=== PATIENT | female | born 1940 | race Caucasian/White ===

== ENCOUNTER 2022-01-09 05:11 | Inpatient (IN) | payer OTHER ==
[2022-01-09] VITALS (8 sets, daily range): BP systolic 100–141; BP diastolic 48–66
[~2022-01-09] VITALS: Ht 165.1 cm; Wt 72.5 kg
[2022-01-09 06:05] LABS: BASO # 0.1 10^3/uL (0.0-0.2); BASO % 0.5 % (0.0-1.0); EOS # 0.1 10^3/uL (0.0-0.5); HEMATOCRIT 40.5 % (36.0-47.0); HEMOGLOBIN 12.7 g/dl (12.0-15.5); LYMPH % 14.7 % (24.0-44.0); MEAN CORPUSCULAR HEMOGLOBIN 28.9 pg (27.0-33.0); MEAN CORPUSCULAR HGB CONC 31.4 g/dl (32.0-36.5); MEAN CORPUSCULAR VOLUME 92.3 fl (80.0-96.0); MONO # 0.6 10^3/uL (0.0-0.8); MONO % 4.1 % (2.0-8.0); NEUTROPHILS # 10.9 10^3/uL (1.5-8.5); PLATELET COUNT, AUTOMATED 262 10^3/uL (150-450); RED BLOOD COUNT 4.39 10^6/uL (4.00-5.40); WHITE BLOOD COUNT 13.8 10^3/uL (4.0-10.0)
[2022-01-09] MEDS ORDERED: ONDANSETRON 4MG 2ML VIAL IV ONE (06:20)
[2022-01-09] MEDS ORDERED: MORPHINE 4 MG/ML 1ML VIAL/SYRINGE IV ONE (06:20)
[2022-01-09 07:03] LABS: CALCIUM LEVEL 9.2 MG/DL (8.8-10.2); CREATININE FOR GFR 0.97 MG/DL (0.55-1.30); GLOMERULAR FILTRATION RATE 58.8 (>32); MAGNESIUM LEVEL 2.1 MG/DL (1.8-2.4); POTASSIUM SERUM 4.1 MEQ/L (3.5-5.1)
[2022-01-09] MEDS ORDERED: GLUCAGON INJ 1MG VIAL SC PRN (07:25)
[2022-01-09] MEDS ORDERED: GLUCOSE 4GM CHEW TABLET PO PRN (07:25)
[2022-01-09] MEDS ORDERED: DEXTROSE 50% 50 ML SYRINGE IV PRN (07:25)
[2022-01-09 07:30] LABS: RSV AMPLIFICATION NEGATIVE (NEGATIVE)
[2022-01-09] MEDS ORDERED: LORA1TAB4 PO (08:21)
[2022-01-09] MEDS ORDERED: ASPI81TA26 PO (08:21)
[2022-01-09] MEDS ORDERED: [UNRECOGNIZED DRUG - CODE] PO (08:21)
[2022-01-09] MEDS ORDERED: JARD1TAB PO (08:21)
[2022-01-09] MEDS ORDERED: VITA100093 PO (08:21)
[2022-01-09] MEDS ORDERED: GLUCTAB31 PO (08:21)
[2022-01-09] MEDS ORDERED: GLIP5TAB8 PO (08:21)
[2022-01-09] MEDS ORDERED: FISH1000 PO (08:21)
[2022-01-09] MEDS ORDERED: CALC600T60 PO (08:21)
[2022-01-09] MEDS ORDERED: PERI2TAB PO (08:21)
[2022-01-09] MEDS ORDERED: VITA-172 PO (08:21)
[2022-01-09] MEDS ORDERED: LIPI10TA PO (08:21)
[2022-01-09] MEDS ORDERED: METF500T13 PO (08:21)
[2022-01-09] MEDS ORDERED: CRAN400C PO (08:21)
[2022-01-09] MEDS ORDERED: HOME MED LIST COMPLETE! XX SCH (08:25)
[2022-01-09] MEDS ORDERED: KCL 10MEQ IN D5/0.45NS 1000ML 1,000 ML IV SCH (09:00)
[2022-01-09] MEDS: MORPHINE 2 MG/ML 1ML VIAL IV PRN ×3 (11:10→13:54)
[2022-01-09] MEDS: D5W/0.45% SODIUM CHLORIDE 1,000 ML IV SCH ×2 (11:10→19:02)
[2022-01-09] MEDS ORDERED: propofoL 200 MG/20 ML VIAL As Ordered ONE (12:51)
[2022-01-09] MEDS ORDERED: LIDOCAINE 2% 100MG/5ML SDV (FOR ANES.) As Ordered ONE (12:51)
[2022-01-09] MEDS ORDERED: ONDANSETRON 4MG 2ML VIAL As Ordered ONE (12:51)
[2022-01-09] MEDS ORDERED: MIDAZOLAM INJ 2MG/2ML VIAL (J2250 PER 1MG) As Ordered ONE (12:51)
[2022-01-09] MEDS ORDERED: KETAMINE HCL 200 MG/20 ML VIAL As Ordered ONE (12:51)
[2022-01-09] MEDS ORDERED: fentaNYL 100 MCG/2 ML INJECTION As Ordered ONE (12:51)
[2022-01-09] MEDS: INSULIN LISPRO (NovoLOG) PER UNIT SC SCH ×3 (13:53→23:08)
[2022-01-09] MEDS ORDERED: TRANEXAMIC ACID 100 MG/ML 10ML VIAL As Ordered ONE (15:04)
[2022-01-09] MEDS ORDERED: ceFAZolin 2 GM/D5W 50 ML IV BAG (J0690 PER 500MG) As Ordered ONE (15:04)
[2022-01-09] MEDS ORDERED: PHENYLephrine 500MCG 5ML (100MCG/ML) SYRINGE As Ordered ONE ×2 (16:27→16:28)
[2022-01-09] MEDS ORDERED: ACETAMINOPHEN 1000MG 100ML IV BTL (OFIRMEV) (J0131 PER 10MG) As Ordered ONE (16:27)
[2022-01-09] MEDS ORDERED: ePHEDrine SULFATE 25 MG/5 ML(5MG/ML) SYRINGE As Ordered ONE (16:28)
[2022-01-09] MEDS ORDERED: LR 1,000 ML IV SCH (17:25)
[2022-01-09] MEDS ORDERED: oxyCODONE 5MG TAB PO PRN (17:25)
[2022-01-09] MEDS ORDERED: MORPHINE 2 MG/ML 1ML VIAL IV PRN (17:25)
[2022-01-09] MEDS ORDERED: ONDANSETRON 4MG 2ML VIAL IV PRN (17:25)
[2022-01-09] MEDS ORDERED: fentaNYL 100 MCG/2 ML INJECTION IV PRN (17:25)
[2022-01-10] MEDS ORDERED: ceFAZolin SOD 2 GM in IV 1 EA IV SCH ×2
[2022-01-10 00:06] VITALS: BP 106/55
[2022-01-10] MEDS: ceFAZolin SOD 2 GM in IV 1 EA IV SCH ×3 (00:09→18:15)
[2022-01-10] MEDS: MORPHINE 2 MG/ML 1ML VIAL IV PRN ×2 (01:17→06:43)
[2022-01-10 01:25] LABS: APPEARANCE, URINE MANUAL CLEAR (CLEAR); COLOR, URINE MANUAL YELLOW (YELLOW)
[2022-01-10 01:26] LABS: BILIRUBIN, URINE MANUAL NEGATIVE (NEGATIVE); BLOOD URINE MANUAL TRACE (NEGATIVE); GLUCOSE, URINE (UA) MANUAL 4+(1000 MG/DL) mg/dL (NEGATIVE); KETONE, URINE MANUAL NEGATIVE (NEGATIVE); NITRITE, URINE MANUAL NEGATIVE (NEGATIVE); PROTEIN, URINE MANUAL NEGATIVE (NEGATIVE); UROBILINOGEN, URINE MANUAL NORMAL (NORMAL)
[2022-01-10 01:27] LABS: LEUKOCYTE ESTERASE, URINE MAN NEGATIVE (NEGATIVE)
[2022-01-10 01:36] LABS: SQUAMOUS EPITHELIAL CELL URINE SMALL AMOUNT /hpf (SMALL AMT); WBC, URINE 0-1 /hpf (0-3)
[2022-01-10 01:37] LABS: AMORPHOUS SEDIMENT, URINE SMALL AMOUNT (NEGATIVE); BACTERIA, URINE SMALL AMOUNT; HYALINE CAST, URINE NONE SEEN /lpf (0-1)
[2022-01-10 04:00] VITALS: BP 103/55
[2022-01-10] MEDS: D5W/0.45% SODIUM CHLORIDE 1,000 ML IV SCH (05:27)
[2022-01-10 08:00] VITALS: BP 107/54
[2022-01-10] MEDS ORDERED: metFORMIN (GLUCOPHAGE) 500MG TAB PO SCH (08:00)
[2022-01-10] MEDS ORDERED: PERCOCET 5MG/325MG TAB PO ONE (08:40)
[2022-01-10] MEDS ORDERED: KETOROLAC 30 MG/ML 1ML VIAL IV ONE (08:40)
[2022-01-10] MEDS ORDERED: PERCOCET 5MG/325MG TAB PO PRN ×2 (08:40)
[2022-01-10] MEDS: ATORVASTATIN 10 MG TAB PO SCH (08:55)
[2022-01-10] MEDS: ASPIRIN 81MG ENTERIC TABLET PO SCH (08:55)
[2022-01-10] MEDS: VITAMIN D 1,000 INTERNATIONAL UNITS TABLET PO SCH (08:55)
[2022-01-10] MEDS: CYANOCOBALAMIN 500 MCG TAB PO SCH (08:55)
[2022-01-10] MEDS: INSULIN LISPRO (NovoLOG) PER UNIT SC SCH ×4 (08:56→20:53)
[2022-01-10] MEDS ORDERED: glipiZIDE (GLUCOTROL) 5 MG TAB PO SCH (09:00)
[2022-01-10 10:12] LABS: HEMATOCRIT 30.1 % (36.0-47.0); HEMOGLOBIN 9.5 g/dl (12.0-15.5); MEAN CORPUSCULAR HEMOGLOBIN 29.4 pg (27.0-33.0); MEAN CORPUSCULAR HGB CONC 31.6 g/dl (32.0-36.5); MEAN CORPUSCULAR VOLUME 93.2 fl (80.0-96.0); PLATELET COUNT, AUTOMATED 207 10^3/uL (150-450); RED BLOOD COUNT 3.23 10^6/uL (4.00-5.40); WHITE BLOOD COUNT 19.4 10^3/uL (4.0-10.0)
[2022-01-10 10:18] LABS: CALCIUM LEVEL 8.3 MG/DL (8.8-10.2); CREATININE FOR GFR 1.03 MG/DL (0.55-1.30); GLOMERULAR FILTRATION RATE 54.9 (>32); POTASSIUM SERUM 4.4 MEQ/L (3.5-5.1)
[2022-01-10 12:00] VITALS: BP 110/47
[2022-01-10 14:00] VITALS: BP 115/51
[2022-01-10 20:00] VITALS: BP 115/48
[2022-01-11 06:00] VITALS: BP 125/60
[2022-01-11 06:55] LABS: HEMOGLOBIN 8.1 g/dl (12.0-15.5); MEAN CORPUSCULAR HEMOGLOBIN 29.1 pg (27.0-33.0); MEAN CORPUSCULAR HGB CONC 32.4 g/dl (32.0-36.5); MEAN CORPUSCULAR VOLUME 89.9 fl (80.0-96.0); PLATELET COUNT, AUTOMATED 187 10^3/uL (150-450); RED BLOOD COUNT 2.78 10^6/uL (4.00-5.40); WHITE BLOOD COUNT 17.9 10^3/uL (4.0-10.0)
[2022-01-11 07:24] LABS: ALBUMIN 2.5 GM/DL (3.2-5.2); BILIRUBIN,TOTAL 0.4 MG/DL (0.2-1.0); CALCIUM LEVEL 8.5 MG/DL (8.8-10.2); CREATININE FOR GFR 1.07 MG/DL (0.55-1.30); GLOMERULAR FILTRATION RATE 52.5 (>32); MAGNESIUM LEVEL 1.9 MG/DL (1.8-2.4); POTASSIUM SERUM 4.2 MEQ/L (3.5-5.1); TOTAL PROTEIN 5.8 GM/DL (6.4-8.2)
[2022-01-11] MEDS: CYANOCOBALAMIN 500 MCG TAB PO SCH (08:29)
[2022-01-11] MEDS: ASPIRIN 81MG ENTERIC TABLET PO SCH (08:29)
[2022-01-11] MEDS: VITAMIN D 1,000 INTERNATIONAL UNITS TABLET PO SCH (08:29)
[2022-01-11] MEDS: ATORVASTATIN 10 MG TAB PO SCH (08:29)
[2022-01-11] MEDS: INSULIN LISPRO (NovoLOG) PER UNIT SC SCH ×4 (08:29→21:00)
[2022-01-11] MEDS: NORCO, ANEXSIA 5/325MG TABLET (HYDROcodone/ACETAMINOPHEN) PO PRN (08:47)
[2022-01-11] MEDS: LORazepam 0.5 MG TAB PO PRN (11:34)
[2022-01-11 12:48] LABS: HEMATOCRIT 26.2 % (36.0-47.0); HEMOGLOBIN 8.5 g/dl (12.0-15.5)
[2022-01-11 14:00] VITALS: BP 124/60
[2022-01-12 06:00] VITALS: BP 141/61
[2022-01-12 06:44] LABS: HEMATOCRIT 25.6 % (36.0-47.0); MEAN CORPUSCULAR HEMOGLOBIN 28.3 pg (27.0-33.0); MEAN CORPUSCULAR HGB CONC 31.3 g/dl (32.0-36.5); MEAN CORPUSCULAR VOLUME 90.5 fl (80.0-96.0); PLATELET COUNT, AUTOMATED 191 10^3/uL (150-450); RED BLOOD COUNT 2.83 10^6/uL (4.00-5.40); WHITE BLOOD COUNT 13.9 10^3/uL (4.0-10.0)
[2022-01-12 07:15] LABS: ALBUMIN 2.4 GM/DL (3.2-5.2); ALT/SGPT 10 U/L (12-78); BILIRUBIN,TOTAL 0.3 MG/DL (0.2-1.0); BLOOD UREA NITROGEN 22 MG/DL (7-18); CALCIUM LEVEL 8.4 MG/DL (8.8-10.2); CARBON DIOXIDE LEVEL 21 MEQ/L (21-32); CHLORIDE LEVEL 106 MEQ/L (98-107); CREATININE FOR GFR 0.77 MG/DL (0.55-1.30); GLOMERULAR FILTRATION RATE > 60.0 (>32); GLUCOSE, FASTING 125 MG/DL (70-100); POTASSIUM SERUM 4.1 MEQ/L (3.5-5.1); SODIUM LEVEL 136 MEQ/L (136-145); TOTAL PROTEIN 5.3 GM/DL (6.4-8.2)
[2022-01-12] MEDS: INSULIN LISPRO (NovoLOG) PER UNIT SC SCH ×4 (07:30→20:00)
[2022-01-12] MEDS: ASPIRIN 81MG ENTERIC TABLET PO SCH (08:11)
[2022-01-12] MEDS: VITAMIN D 1,000 INTERNATIONAL UNITS TABLET PO SCH (08:11)
[2022-01-12] MEDS: CYANOCOBALAMIN 500 MCG TAB PO SCH (08:11)
[2022-01-12] MEDS: ATORVASTATIN 10 MG TAB PO SCH (08:11)
[2022-01-12] MEDS: NORCO, ANEXSIA 5/325MG TABLET (HYDROcodone/ACETAMINOPHEN) PO PRN ×2 (08:15→19:59)
[2022-01-12] MEDS: LORazepam 0.5 MG TAB PO PRN (14:39)
[2022-01-12 15:00] VITALS: BP 140/61
[2022-01-12 20:02] VITALS: BP 139/60
[2022-01-13] MEDS: NORCO, ANEXSIA 5/325MG TABLET (HYDROcodone/ACETAMINOPHEN) PO PRN ×3 (04:03→20:45)
[2022-01-13 05:36] VITALS: BP 129/59
[2022-01-13 06:29] LABS: HEMATOCRIT 25.7 % (36.0-47.0); HEMOGLOBIN 8.3 g/dl (12.0-15.5); MEAN CORPUSCULAR HEMOGLOBIN 28.8 pg (27.0-33.0); MEAN CORPUSCULAR HGB CONC 32.3 g/dl (32.0-36.5); MEAN CORPUSCULAR VOLUME 89.2 fl (80.0-96.0); PLATELET COUNT, AUTOMATED 240 10^3/uL (150-450); RED BLOOD COUNT 2.88 10^6/uL (4.00-5.40); WHITE BLOOD COUNT 13.3 10^3/uL (4.0-10.0)
[2022-01-13] MEDS: LORazepam 0.5 MG TAB PO PRN (06:32)
[2022-01-13 07:19] LABS: ALBUMIN 2.4 GM/DL (3.2-5.2); ALT/SGPT 12 U/L (12-78); BILIRUBIN,TOTAL 0.5 MG/DL (0.2-1.0); BLOOD UREA NITROGEN 25 MG/DL (7-18); CALCIUM LEVEL 8.4 MG/DL (8.8-10.2); CARBON DIOXIDE LEVEL 22 MEQ/L (21-32); CHLORIDE LEVEL 105 MEQ/L (98-107); GLOMERULAR FILTRATION RATE > 60.0 (>32); GLUCOSE, FASTING 158 MG/DL (70-100); MAGNESIUM LEVEL 2.1 MG/DL (1.8-2.4); POTASSIUM SERUM 4.2 MEQ/L (3.5-5.1); SODIUM LEVEL 135 MEQ/L (136-145); TOTAL PROTEIN 5.7 GM/DL (6.4-8.2)
[2022-01-13] MEDS: INSULIN LISPRO (NovoLOG) PER UNIT SC SCH ×4 (07:30→20:43)
[2022-01-13] MEDS: CYANOCOBALAMIN 500 MCG TAB PO SCH (09:40)
[2022-01-13] MEDS: ASPIRIN 81MG ENTERIC TABLET PO SCH (09:40)
[2022-01-13] MEDS: VITAMIN D 1,000 INTERNATIONAL UNITS TABLET PO SCH (09:40)
[2022-01-13] MEDS: ATORVASTATIN 10 MG TAB PO SCH (09:40)
[2022-01-13] MEDS: SENOKOT S TAB PO SCH ×2 (13:09→20:44)
[2022-01-13 14:00] VITALS: BP 132/57
[2022-01-13 20:00] VITALS: BP 133/55
[2022-01-14] MEDS: NORCO, ANEXSIA 5/325MG TABLET (HYDROcodone/ACETAMINOPHEN) PO PRN ×3 (04:53→19:04)
[2022-01-14 06:00] VITALS: BP 124/67
[2022-01-14 07:00] LABS: HEMATOCRIT 24.9 % (36.0-47.0); HEMOGLOBIN 8.2 g/dl (12.0-15.5); MEAN CORPUSCULAR HEMOGLOBIN 29.1 pg (27.0-33.0); MEAN CORPUSCULAR HGB CONC 32.9 g/dl (32.0-36.5); MEAN CORPUSCULAR VOLUME 88.3 fl (80.0-96.0); PLATELET COUNT, AUTOMATED 293 10^3/uL (150-450); RED BLOOD COUNT 2.82 10^6/uL (4.00-5.40); WHITE BLOOD COUNT 11.8 10^3/uL (4.0-10.0)
[2022-01-14] MEDS: LORazepam 0.5 MG TAB PO PRN (07:00)
[2022-01-14 07:34] LABS: ALBUMIN 2.3 GM/DL (3.2-5.2); ALT/SGPT 10 U/L (12-78); BILIRUBIN,TOTAL 0.6 MG/DL (0.2-1.0); BLOOD UREA NITROGEN 21 MG/DL (7-18); CALCIUM LEVEL 8.5 MG/DL (8.8-10.2); CARBON DIOXIDE LEVEL 24 MEQ/L (21-32); CHLORIDE LEVEL 105 MEQ/L (98-107); CREATININE FOR GFR 0.76 MG/DL (0.55-1.30); GLOMERULAR FILTRATION RATE > 60.0 (>32); GLUCOSE, FASTING 168 MG/DL (70-100); MAGNESIUM LEVEL 2.2 MG/DL (1.8-2.4); POTASSIUM SERUM 4.5 MEQ/L (3.5-5.1); SODIUM LEVEL 136 MEQ/L (136-145); TOTAL PROTEIN 5.5 GM/DL (6.4-8.2)
[2022-01-14] MEDS: INSULIN LISPRO (NovoLOG) PER UNIT SC SCH ×4 (08:25→21:00)
[2022-01-14] MEDS: ACETAMINOPHEN TAB 650MG DOSE (2X325MG) PO PRN (08:26)
[2022-01-14] MEDS: CYANOCOBALAMIN 500 MCG TAB PO SCH (08:26)
[2022-01-14] MEDS: ASPIRIN 81MG ENTERIC TABLET PO SCH (08:26)
[2022-01-14] MEDS: SENOKOT S TAB PO SCH ×2 (08:26→21:24)
[2022-01-14] MEDS: VITAMIN D 1,000 INTERNATIONAL UNITS TABLET PO SCH (08:26)
[2022-01-14] MEDS: ATORVASTATIN 10 MG TAB PO SCH (08:26)
[2022-01-14] MEDS: ENOXAPARIN 40MG/0.4ML SYRINGE (J1650 PER 10MG) SC SCH (12:19)
[2022-01-15] MEDS: NORCO, ANEXSIA 5/325MG TABLET (HYDROcodone/ACETAMINOPHEN) PO PRN ×3 (02:59→15:51)
[2022-01-15] MEDS ORDERED: NORCO, ANEXSIA 5/325MG TABLET (HYDROcodone/ACETAMINOPHEN) PO ONE (04:00)
[2022-01-15 06:00] VITALS: BP 130/54
[2022-01-15 06:56] LABS: BASO # 0.1 10^3/uL (0.0-0.2); BASO % 0.6 % (0.0-1.0); EOS # 0.3 10^3/uL (0.0-0.5); EOS % 2.4 % (0.0-3.0); HEMATOCRIT 26.2 % (36.0-47.0); HEMOGLOBIN 8.4 g/dl (12.0-15.5); LYMPH # 1.8 10^3/uL (1.5-5.0); LYMPH % 16.9 % (24.0-44.0); MEAN CORPUSCULAR HEMOGLOBIN 28.9 pg (27.0-33.0); MEAN CORPUSCULAR HGB CONC 32.1 g/dl (32.0-36.5); MONO % 9.5 % (2.0-8.0); NEUTROPHILS # 7.5 10^3/uL (1.5-8.5); NEUTROPHILS % 68.8 % (36.0-66.0); PLATELET COUNT, AUTOMATED 335 10^3/uL (150-450); RED BLOOD COUNT 2.91 10^6/uL (4.00-5.40); WHITE BLOOD COUNT 10.9 10^3/uL (4.0-10.0)
[2022-01-15 07:27] LABS: ALBUMIN 2.3 GM/DL (3.2-5.2); ALT/SGPT 13 U/L (12-78); BILIRUBIN,TOTAL 0.5 MG/DL (0.2-1.0); BLOOD UREA NITROGEN 22 MG/DL (7-18); CALCIUM LEVEL 8.9 MG/DL (8.8-10.2); CARBON DIOXIDE LEVEL 25 MEQ/L (21-32); CHLORIDE LEVEL 100 MEQ/L (98-107); CREATININE FOR GFR 0.83 MG/DL (0.55-1.30); GLOMERULAR FILTRATION RATE > 60.0 (>32); GLUCOSE, FASTING 160 MG/DL (70-100); MAGNESIUM LEVEL 2.2 MG/DL (1.8-2.4); POTASSIUM SERUM 5.1 MEQ/L (3.5-5.1); SODIUM LEVEL 133 MEQ/L (136-145); TOTAL PROTEIN 5.5 GM/DL (6.4-8.2)
[2022-01-15] MEDS: CYANOCOBALAMIN 500 MCG TAB PO SCH (09:21)
[2022-01-15] MEDS: SENOKOT S TAB PO SCH ×2 (09:21→20:11)
[2022-01-15] MEDS: VITAMIN D 1,000 INTERNATIONAL UNITS TABLET PO SCH (09:21)
[2022-01-15] MEDS: ASPIRIN 81MG ENTERIC TABLET PO SCH (09:21)
[2022-01-15] MEDS: ATORVASTATIN 10 MG TAB PO SCH (09:21)
[2022-01-15] MEDS: ENOXAPARIN 40MG/0.4ML SYRINGE (J1650 PER 10MG) SC SCH (09:22)
[2022-01-15] MEDS: INSULIN LISPRO (NovoLOG) PER UNIT SC SCH ×4 (09:27→20:11)
[2022-01-15 10:00] VITALS: BP 122/66
[2022-01-15] MEDS: LORazepam 0.5 MG TAB PO PRN (10:35)
[2022-01-15 12:40] VITALS: BP 132/76
[2022-01-15] MEDS ORDERED: ADENOSINE 6MG/2ML INJECTION (J0153) IV STA (13:05)
[2022-01-15] MEDS ORDERED: ADENOSINE 6MG/2ML INJECTION (J0153) As Ordered ONE (13:06)
[2022-01-15] MEDS ORDERED: ISOVUE-370 76% 100ML VIAL As Ordered ONE (13:57)
[2022-01-15 14:02] LABS: BASO # 0.1 10^3/uL (0.0-0.2); BASO % 0.5 % (0.0-1.0); EOS # 0.1 10^3/uL (0.0-0.5); EOS % 1.2 % (0.0-3.0); HEMATOCRIT 27.4 % (36.0-47.0); HEMOGLOBIN 8.6 g/dl (12.0-15.5); LYMPH # 1.4 10^3/uL (1.5-5.0); LYMPH % 12.2 % (24.0-44.0); MEAN CORPUSCULAR HEMOGLOBIN 28.1 pg (27.0-33.0); MEAN CORPUSCULAR HGB CONC 31.4 g/dl (32.0-36.5); MEAN CORPUSCULAR VOLUME 89.5 fl (80.0-96.0); MONO % 8.2 % (2.0-8.0); NEUTROPHILS % 76.2 % (36.0-66.0); PLATELET COUNT, AUTOMATED 368 10^3/uL (150-450); RED BLOOD COUNT 3.06 10^6/uL (4.00-5.40); WHITE BLOOD COUNT 11.8 10^3/uL (4.0-10.0)
[2022-01-15 14:28] LABS: MAGNESIUM LEVEL 2.1 MG/DL (1.8-2.4)
[2022-01-15] MEDS: METOPROLOL TART 12.5 MG PER 1/2 TAB PO SCH ×2 (14:31→20:11)
[2022-01-15 14:40] LABS: ALBUMIN 2.4 GM/DL (3.2-5.2); ALT/SGPT 15 U/L (12-78); BILIRUBIN,TOTAL 0.5 MG/DL (0.2-1.0); BLOOD UREA NITROGEN 23 MG/DL (7-18); CALCIUM LEVEL 8.7 MG/DL (8.8-10.2); CARBON DIOXIDE LEVEL 29 MEQ/L (21-32); CHLORIDE LEVEL 100 MEQ/L (98-107); CREATININE FOR GFR 0.92 MG/DL (0.55-1.30); FREE THYROXINE INDEX 3.8 % (1.3-4.8); GLOMERULAR FILTRATION RATE > 60.0 (>32); GLUCOSE, FASTING 237 MG/DL (70-100); POTASSIUM SERUM 5.3 MEQ/L (3.5-5.1); SODIUM LEVEL 133 MEQ/L (136-145); T UPTAKE 37 % (30-39); THYROXINE (T4) 10.3 UG/DL (4.5-12.0); TOTAL PROTEIN 5.8 GM/DL (6.4-8.2)
[2022-01-15] MEDS ORDERED: DEXTROSE 50% 50 ML SYRINGE IV STA (14:45)
[2022-01-15] MEDS ORDERED: HumuLIN R (REGULAR) INSULIN (NovoLIN R) **100U/ML** PER UNIT IV STA (14:45)
[2022-01-15] MEDS: NS 1,000 ML IV SCH (15:38)
[2022-01-15 16:00] VITALS: BP 142/72
[2022-01-15] MEDS ORDERED: SOD POLYSTYRENE SULFONATE SUSP 15GM 60ML UD PO ONE (16:00)
[2022-01-15 20:04] VITALS: BP 145/64
[2022-01-15] MEDS: ACETAMINOPHEN TAB 650MG DOSE (2X325MG) PO PRN (20:11)
[2022-01-15 20:14] LABS: BLOOD UREA NITROGEN 22 MG/DL (7-18); CALCIUM LEVEL 9.3 MG/DL (8.8-10.2); CARBON DIOXIDE LEVEL 27 MEQ/L (21-32); CHLORIDE LEVEL 102 MEQ/L (98-107); GLOMERULAR FILTRATION RATE > 60.0 (>32); GLUCOSE, FASTING 131 MG/DL (70-100); POTASSIUM SERUM 4.4 MEQ/L (3.5-5.1); SODIUM LEVEL 137 MEQ/L (136-145)
[2022-01-15 23:53] VITALS: BP 136/62
[2022-01-16 03:51] VITALS: BP 123/58
[2022-01-16] MEDS: NS 1,000 ML IV SCH ×2 (03:52→15:43)
[2022-01-16] MEDS: NORCO, ANEXSIA 5/325MG TABLET (HYDROcodone/ACETAMINOPHEN) PO PRN ×3 (03:53→20:47)
[2022-01-16 05:08] LABS: HEMATOCRIT 23.8 % (36.0-47.0); HEMOGLOBIN 7.5 g/dl (12.0-15.5); MEAN CORPUSCULAR HEMOGLOBIN 28.4 pg (27.0-33.0); MEAN CORPUSCULAR HGB CONC 31.5 g/dl (32.0-36.5); MEAN CORPUSCULAR VOLUME 90.2 fl (80.0-96.0); PLATELET COUNT, AUTOMATED 364 10^3/uL (150-450); RED BLOOD COUNT 2.64 10^6/uL (4.00-5.40); WHITE BLOOD COUNT 12.7 10^3/uL (4.0-10.0)
[2022-01-16 05:43] LABS: ALBUMIN 2.2 GM/DL (3.2-5.2); ALT/SGPT 13 U/L (12-78); BILIRUBIN,TOTAL 0.5 MG/DL (0.2-1.0); BLOOD UREA NITROGEN 21 MG/DL (7-18); CALCIUM LEVEL 8.6 MG/DL (8.8-10.2); CARBON DIOXIDE LEVEL 29 MEQ/L (21-32); CHLORIDE LEVEL 101 MEQ/L (98-107); CREATININE FOR GFR 0.76 MG/DL (0.55-1.30); GLOMERULAR FILTRATION RATE > 60.0 (>32); GLUCOSE, FASTING 151 MG/DL (70-100); MAGNESIUM LEVEL 2.2 MG/DL (1.8-2.4); SODIUM LEVEL 136 MEQ/L (136-145); TOTAL PROTEIN 5.1 GM/DL (6.4-8.2)
[2022-01-16] MEDS: ACETAMINOPHEN TAB 650MG DOSE (2X325MG) PO PRN (06:30)
[2022-01-16] MEDS: LORazepam 0.5 MG TAB PO PRN (07:42)
[2022-01-16 08:00] VITALS: BP 131/59
[2022-01-16] MEDS: INSULIN LISPRO (NovoLOG) PER UNIT SC SCH ×4 (08:28→20:09)
[2022-01-16] MEDS: CYANOCOBALAMIN 500 MCG TAB PO SCH (08:28)
[2022-01-16] MEDS: SENOKOT S TAB PO SCH ×2 (08:29→20:44)
[2022-01-16] MEDS: ATORVASTATIN 10 MG TAB PO SCH (08:29)
[2022-01-16] MEDS: ASPIRIN 81MG ENTERIC TABLET PO SCH (08:29)
[2022-01-16] MEDS: VITAMIN D 1,000 INTERNATIONAL UNITS TABLET PO SCH (08:29)
[2022-01-16] MEDS: METOPROLOL TART 12.5 MG PER 1/2 TAB PO SCH ×2 (08:30→20:46)
[2022-01-16] MEDS: ENOXAPARIN 40MG/0.4ML SYRINGE (J1650 PER 10MG) SC SCH (08:30)
[2022-01-16 12:08] VITALS: BP 119/58
[2022-01-16 12:14] LABS: HEMATOCRIT 24.3 % (36.0-47.0); HEMOGLOBIN 7.6 g/dl (12.0-15.5)
[2022-01-16 12:54] LABS: PERCENT SATURATION 19.9 % (13.2-45.0)
[2022-01-16 15:36] VITALS: BP 137/60
[2022-01-16] MEDS: FERROUS SULFATE 325MG TAB PO SCH (15:42)
[2022-01-16] MEDS ORDERED: LORazepam 0.5 MG TAB PO ONE (20:00)
[2022-01-16 20:12] LABS: HEMATOCRIT 24.8 % (36.0-47.0); HEMOGLOBIN 7.8 g/dl (12.0-15.5)
[2022-01-17] VITALS (16 sets, daily range): BP systolic 115–157; BP diastolic 56–74
[2022-01-17] MEDS: NS 1,000 ML IV SCH ×2 (04:08→20:40)
[2022-01-17] MEDS: NORCO, ANEXSIA 5/325MG TABLET (HYDROcodone/ACETAMINOPHEN) PO PRN ×3 (05:57→19:37)
[2022-01-17 06:39] LABS: BASO # 0.1 10^3/uL (0.0-0.2); BASO % 0.3 % (0.0-1.0); EOS # 0.2 10^3/uL (0.0-0.5); EOS % 1.2 % (0.0-3.0); HEMATOCRIT 25.1 % (36.0-47.0); HEMOGLOBIN 7.9 g/dl (12.0-15.5); LYMPH # 1.3 10^3/uL (1.5-5.0); LYMPH % 6.9 % (24.0-44.0); MEAN CORPUSCULAR HEMOGLOBIN 29.4 pg (27.0-33.0); MEAN CORPUSCULAR HGB CONC 31.5 g/dl (32.0-36.5); MEAN CORPUSCULAR VOLUME 93.3 fl (80.0-96.0); MONO # 0.9 10^3/uL (0.0-0.8); MONO % 5.2 % (2.0-8.0); NEUTROPHILS # 15.3 10^3/uL (1.5-8.5); NEUTROPHILS % 84.5 % (36.0-66.0); PLATELET COUNT, AUTOMATED 426 10^3/uL (150-450); RED BLOOD COUNT 2.69 10^6/uL (4.00-5.40); WHITE BLOOD COUNT 18.1 10^3/uL (4.0-10.0)
[2022-01-17 07:12] LABS: ALBUMIN 2.4 GM/DL (3.2-5.2); ALT/SGPT 13 U/L (12-78); BILIRUBIN,TOTAL 0.5 MG/DL (0.2-1.0); BLOOD UREA NITROGEN 17 MG/DL (7-18); CALCIUM LEVEL 8.5 MG/DL (8.8-10.2); CARBON DIOXIDE LEVEL 27 MEQ/L (21-32); CHLORIDE LEVEL 103 MEQ/L (98-107); CREATININE FOR GFR 0.69 MG/DL (0.55-1.30); GLOMERULAR FILTRATION RATE > 60.0 (>32); GLUCOSE, FASTING 178 MG/DL (70-100); MAGNESIUM LEVEL 2.1 MG/DL (1.8-2.4); POTASSIUM SERUM 4.2 MEQ/L (3.5-5.1); SODIUM LEVEL 135 MEQ/L (136-145); TOTAL PROTEIN 5.6 GM/DL (6.4-8.2)
[2022-01-17] MEDS: LORazepam 0.5 MG TAB PO PRN (07:42)
[2022-01-17] MEDS: ENOXAPARIN 40MG/0.4ML SYRINGE (J1650 PER 10MG) SC SCH (08:58)
[2022-01-17] MEDS: ATORVASTATIN 10 MG TAB PO SCH (08:58)
[2022-01-17] MEDS: ASPIRIN 81MG ENTERIC TABLET PO SCH (08:58)
[2022-01-17] MEDS: SENOKOT S TAB PO SCH ×2 (08:59→20:16)
[2022-01-17] MEDS: INSULIN LISPRO (NovoLOG) PER UNIT SC SCH ×4 (08:59→20:15)
[2022-01-17] MEDS: FERROUS SULFATE 325MG TAB PO SCH (09:00)
[2022-01-17] MEDS: VITAMIN D 1,000 INTERNATIONAL UNITS TABLET PO SCH (09:00)
[2022-01-17] MEDS: CYANOCOBALAMIN 500 MCG TAB PO SCH (09:00)
[2022-01-17] MEDS: METOPROLOL TART 12.5 MG PER 1/2 TAB PO SCH ×2 (09:02→20:16)
[2022-01-17 11:49] LABS: FOLATE 13.1 NG/ML (>5.4)
[2022-01-17 13:58] LABS: CK-MB VALUE MASS < 1.0 NG/ML (<3.6); CPK CREATINE PHOSPHOKINASE 47 U/L (26-192); MB/CK RELATIVE INDEX 2.13 (< OR =4)
[2022-01-17 23:14] LABS: CK-MB VALUE MASS < 1.0 NG/ML (<3.6); CPK CREATINE PHOSPHOKINASE 38 U/L (26-192); MB/CK RELATIVE INDEX 2.63 (< OR =4)
[2022-01-18] VITALS: BP 134/60
[2022-01-18] MEDS: NS 1,000 ML IV SCH ×3 (01:25→20:21)
[2022-01-18] MEDS: NORCO, ANEXSIA 5/325MG TABLET (HYDROcodone/ACETAMINOPHEN) PO PRN ×3 (03:39→17:27)
[2022-01-18 04:00] VITALS: BP 119/57
[2022-01-18 07:04] LABS: HEMATOCRIT 32.4 % (36.0-47.0); MEAN CORPUSCULAR HEMOGLOBIN 29.8 pg (27.0-33.0); MEAN CORPUSCULAR HGB CONC 32.1 g/dl (32.0-36.5); MEAN CORPUSCULAR VOLUME 92.8 fl (80.0-96.0); PLATELET COUNT, AUTOMATED 370 10^3/uL (150-450); RED BLOOD COUNT 3.49 10^6/uL (4.00-5.40)
[2022-01-18 07:06] LABS: HEMOGLOBIN 10.4 g/dl (12.0-15.5)
[2022-01-18 07:31] LABS: CK-MB VALUE MASS < 1.0 NG/ML (<3.6); CPK CREATINE PHOSPHOKINASE 36 U/L (26-192); MB/CK RELATIVE INDEX 2.78 (< OR =4)
[2022-01-18 07:32] LABS: BLOOD UREA NITROGEN 16 MG/DL (7-18); CALCIUM LEVEL 8.6 MG/DL (8.8-10.2); CARBON DIOXIDE LEVEL 27 MEQ/L (21-32); CHLORIDE LEVEL 107 MEQ/L (98-107); CREATININE FOR GFR 0.78 MG/DL (0.55-1.30); GLOMERULAR FILTRATION RATE > 60.0 (>32); GLUCOSE, FASTING 157 MG/DL (70-100); POTASSIUM SERUM 4.5 MEQ/L (3.5-5.1); SODIUM LEVEL 139 MEQ/L (136-145)
[2022-01-18 07:55] VITALS: BP 125/59
[2022-01-18] MEDS: SENOKOT S TAB PO SCH ×2 (08:52→20:39)
[2022-01-18] MEDS: ASPIRIN 81MG ENTERIC TABLET PO SCH (08:52)
[2022-01-18] MEDS: ATORVASTATIN 10 MG TAB PO SCH (08:52)
[2022-01-18] MEDS: ENOXAPARIN 40MG/0.4ML SYRINGE (J1650 PER 10MG) SC SCH (08:52)
[2022-01-18] MEDS: FERROUS SULFATE 325MG TAB PO SCH (08:52)
[2022-01-18] MEDS: CYANOCOBALAMIN 500 MCG TAB PO SCH (08:52)
[2022-01-18] MEDS: VITAMIN D 1,000 INTERNATIONAL UNITS TABLET PO SCH (08:52)
[2022-01-18] MEDS: METOPROLOL TART 12.5 MG PER 1/2 TAB PO SCH (08:52)
[2022-01-18] MEDS: INSULIN LISPRO (NovoLOG) PER UNIT SC SCH ×4 (08:56→20:31)
[2022-01-18] MEDS ORDERED: TAMSULOSIN 0.4 MG CAP PO ONE (10:15)
[2022-01-18 13:00] VITALS: BP 137/63
[2022-01-18 14:50] VITALS: BP 131/59
[2022-01-18] MEDS: LORazepam 0.5 MG TAB PO PRN (17:33)
[2022-01-18] MEDS ORDERED: atenoloL 25 MG TAB PO ONE (19:00)
[2022-01-18] MEDS ORDERED: DIGOXIN 0.125 MG TAB PO ONE (19:00)
[2022-01-18] MEDS ORDERED: NS 500 ML IV ONE (19:00)
[2022-01-18 20:15] VITALS: BP 136/63
[2022-01-19] VITALS (7 sets, daily range): BP systolic 101–157; BP diastolic 52–70
[2022-01-19 04:31] LABS: HEMATOCRIT 31.3 % (36.0-47.0); HEMOGLOBIN 9.9 g/dl (12.0-15.5); MEAN CORPUSCULAR HEMOGLOBIN 29.5 pg (27.0-33.0); MEAN CORPUSCULAR HGB CONC 31.6 g/dl (32.0-36.5); MEAN CORPUSCULAR VOLUME 93.2 fl (80.0-96.0); PLATELET COUNT, AUTOMATED 350 10^3/uL (150-450); RED BLOOD COUNT 3.36 10^6/uL (4.00-5.40); WHITE BLOOD COUNT 11.1 10^3/uL (4.0-10.0)
[2022-01-19 05:28] LABS: BLOOD UREA NITROGEN 17 MG/DL (7-18); CALCIUM LEVEL 8.2 MG/DL (8.8-10.2); CARBON DIOXIDE LEVEL 28 MEQ/L (21-32); CHLORIDE LEVEL 107 MEQ/L (98-107); CREATININE FOR GFR 0.65 MG/DL (0.55-1.30); GLOMERULAR FILTRATION RATE > 60.0 (>32); GLUCOSE, FASTING 151 MG/DL (70-100); MAGNESIUM LEVEL 1.9 MG/DL (1.8-2.4); POTASSIUM SERUM 4.9 MEQ/L (3.5-5.1); SODIUM LEVEL 138 MEQ/L (136-145)
[2022-01-19] MEDS: METOPROLOL TART 25 MG TABLET PO SCH ×2 (06:19)
[2022-01-19] MEDS: INSULIN LISPRO (NovoLOG) PER UNIT SC SCH ×4 (07:32→20:19)
[2022-01-19] MEDS: FERROUS SULFATE 325MG TAB PO SCH (07:33)
[2022-01-19] MEDS: ATORVASTATIN 10 MG TAB PO SCH (07:33)
[2022-01-19] MEDS: VITAMIN D 1,000 INTERNATIONAL UNITS TABLET PO SCH (07:33)
[2022-01-19] MEDS: TAMSULOSIN 0.4 MG CAP PO SCH (07:33)
[2022-01-19] MEDS: CYANOCOBALAMIN 500 MCG TAB PO SCH (07:33)
[2022-01-19] MEDS: ASPIRIN 81MG ENTERIC TABLET PO SCH (07:33)
[2022-01-19] MEDS: SENOKOT S TAB PO SCH (07:33)
[2022-01-19] MEDS: ENOXAPARIN 40MG/0.4ML SYRINGE (J1650 PER 10MG) SC SCH (07:34)
[2022-01-19] MEDS: atenoloL 25 MG TAB PO SCH ×3 (07:40→20:18)
[2022-01-19] MEDS: LORazepam 0.5 MG TAB PO PRN (07:41)
[2022-01-19] MEDS ORDERED: SENOKOT S TAB PO PRN (12:30)
[2022-01-19] MEDS: NORCO, ANEXSIA 5/325MG TABLET (HYDROcodone/ACETAMINOPHEN) PO PRN ×3 (13:18→22:51)
[2022-01-20] VITALS: BP 101/50
[2022-01-20 04:00] VITALS: BP 144/61
[2022-01-20 05:43] LABS: HEMATOCRIT 35.2 % (36.0-47.0); HEMOGLOBIN 10.9 g/dl (12.0-15.5); MEAN CORPUSCULAR HEMOGLOBIN 29.3 pg (27.0-33.0); MEAN CORPUSCULAR VOLUME 94.6 fl (80.0-96.0); PLATELET COUNT, AUTOMATED 392 10^3/uL (150-450); RED BLOOD COUNT 3.72 10^6/uL (4.00-5.40); WHITE BLOOD COUNT 15.5 10^3/uL (4.0-10.0)
[2022-01-20 06:43] LABS: BLOOD UREA NITROGEN 15 MG/DL (7-18); CALCIUM LEVEL 8.8 MG/DL (8.8-10.2); CARBON DIOXIDE LEVEL 26 MEQ/L (21-32); CHLORIDE LEVEL 105 MEQ/L (98-107); CREATININE FOR GFR 0.82 MG/DL (0.55-1.30); GLOMERULAR FILTRATION RATE > 60.0 (>32); GLUCOSE, FASTING 149 MG/DL (70-100); POTASSIUM SERUM 4.7 MEQ/L (3.5-5.1); SODIUM LEVEL 137 MEQ/L (136-145)
[2022-01-20 08:00] VITALS: BP 122/60
[2022-01-20] MEDS: VITAMIN D 1,000 INTERNATIONAL UNITS TABLET PO SCH (08:52)
[2022-01-20] MEDS: CYANOCOBALAMIN 500 MCG TAB PO SCH (08:52)
[2022-01-20] MEDS: ASPIRIN 81MG ENTERIC TABLET PO SCH (08:53)
[2022-01-20] MEDS: ATORVASTATIN 10 MG TAB PO SCH (08:53)
[2022-01-20] MEDS: atenoloL 25 MG TAB PO SCH ×2 (08:53→20:18)
[2022-01-20] MEDS: TAMSULOSIN 0.4 MG CAP PO SCH (08:53)
[2022-01-20] MEDS: INSULIN LISPRO (NovoLOG) PER UNIT SC SCH ×4 (08:55→20:23)
[2022-01-20] MEDS: FERROUS SULFATE 325MG TAB PO SCH (08:58)
[2022-01-20] MEDS ORDERED: LORazepam 0.5 MG TAB PO ONE (09:00)
[2022-01-20] MEDS ORDERED: NORCO, ANEXSIA 5/325MG TABLET (HYDROcodone/ACETAMINOPHEN) PO ONE (09:00)
[2022-01-20] MEDS ORDERED: KETOROLAC 30 MG/ML 1ML VIAL IV ONE (09:00)
[2022-01-20] MEDS: ENOXAPARIN 40MG/0.4ML SYRINGE (J1650 PER 10MG) SC SCH (09:36)
[2022-01-20] MEDS: NORCO, ANEXSIA 5/325MG TABLET (HYDROcodone/ACETAMINOPHEN) PO PRN (18:01)
[2022-01-20 20:00] VITALS: BP 112/57
[2022-01-21] MEDS: NORCO, ANEXSIA 5/325MG TABLET (HYDROcodone/ACETAMINOPHEN) PO PRN ×4 (02:30→23:24)
[2022-01-21 06:00] VITALS: BP 112/50
[2022-01-21 06:19] LABS: HEMOGLOBIN 9.7 g/dl (12.0-15.5); MEAN CORPUSCULAR HEMOGLOBIN 29.4 pg (27.0-33.0); MEAN CORPUSCULAR HGB CONC 31.3 g/dl (32.0-36.5); MEAN CORPUSCULAR VOLUME 93.9 fl (80.0-96.0); PLATELET COUNT, AUTOMATED 345 10^3/uL (150-450); WHITE BLOOD COUNT 13.6 10^3/uL (4.0-10.0)
[2022-01-21 06:52] LABS: BLOOD UREA NITROGEN 17 MG/DL (7-18); C REACTIVE PROTEIN QUANTITATIV 3.12 MG/DL (0.00-0.30); CALCIUM LEVEL 8.6 MG/DL (8.8-10.2); CARBON DIOXIDE LEVEL 23 MEQ/L (21-32); CHLORIDE LEVEL 100 MEQ/L (98-107); GLOMERULAR FILTRATION RATE > 60.0 (>32); GLUCOSE, FASTING 135 MG/DL (70-100); MAGNESIUM LEVEL 2.1 MG/DL (1.8-2.4); POTASSIUM SERUM 4.9 MEQ/L (3.5-5.1); SODIUM LEVEL 132 MEQ/L (136-145)
[2022-01-21 08:05] LABS: ERYTHROCYTE SEDIMENTATION RATE 46 mm/hr (0-30)
[2022-01-21] MEDS: ATORVASTATIN 10 MG TAB PO SCH (08:18)
[2022-01-21] MEDS: CYANOCOBALAMIN 500 MCG TAB PO SCH (08:18)
[2022-01-21] MEDS: FERROUS SULFATE 325MG TAB PO SCH (08:18)
[2022-01-21] MEDS: TAMSULOSIN 0.4 MG CAP PO SCH (08:18)
[2022-01-21] MEDS: VITAMIN D 1,000 INTERNATIONAL UNITS TABLET PO SCH (08:18)
[2022-01-21] MEDS: ASPIRIN 81MG ENTERIC TABLET PO SCH (08:18)
[2022-01-21] MEDS: INSULIN LISPRO (NovoLOG) PER UNIT SC SCH ×4 (08:18→21:00)
[2022-01-21] MEDS: atenoloL 25 MG TAB PO SCH ×2 (08:20→21:00)
[2022-01-21] MEDS: ENOXAPARIN 40MG/0.4ML SYRINGE (J1650 PER 10MG) SC SCH (08:21)
[2022-01-21] MEDS: LORazepam 1 MG TAB PO PRN (08:50)
[2022-01-21 14:00] VITALS: BP 115/54
[2022-01-22] MEDS: NORCO, ANEXSIA 5/325MG TABLET (HYDROcodone/ACETAMINOPHEN) PO PRN ×3 (05:33→17:23)
[2022-01-22 06:00] VITALS: BP 131/55
[2022-01-22 07:15] LABS: HEMATOCRIT 31.6 % (36.0-47.0); HEMOGLOBIN 10.1 g/dl (12.0-15.5); MEAN CORPUSCULAR VOLUME 93.8 fl (80.0-96.0); PLATELET COUNT, AUTOMATED 361 10^3/uL (150-450); RED BLOOD COUNT 3.37 10^6/uL (4.00-5.40); WHITE BLOOD COUNT 11.5 10^3/uL (4.0-10.0)
[2022-01-22] MEDS: INSULIN LISPRO (NovoLOG) PER UNIT SC SCH ×4 (07:30→20:42)
[2022-01-22 07:50] LABS: BLOOD UREA NITROGEN 15 MG/DL (7-18); CALCIUM LEVEL 8.6 MG/DL (8.8-10.2); CARBON DIOXIDE LEVEL 27 MEQ/L (21-32); CHLORIDE LEVEL 104 MEQ/L (98-107); CREATININE FOR GFR 0.78 MG/DL (0.55-1.30); GLOMERULAR FILTRATION RATE > 60.0 (>32); GLUCOSE, FASTING 138 MG/DL (70-100); MAGNESIUM LEVEL 2.2 MG/DL (1.8-2.4); POTASSIUM SERUM 4.8 MEQ/L (3.5-5.1); SODIUM LEVEL 134 MEQ/L (136-145)
[2022-01-22] MEDS: VITAMIN D 1,000 INTERNATIONAL UNITS TABLET PO SCH (08:55)
[2022-01-22] MEDS: ATORVASTATIN 10 MG TAB PO SCH (08:55)
[2022-01-22] MEDS: ASPIRIN 81MG ENTERIC TABLET PO SCH (08:55)
[2022-01-22] MEDS: TAMSULOSIN 0.4 MG CAP PO SCH (08:55)
[2022-01-22] MEDS: atenoloL 25 MG TAB PO SCH ×2 (08:56→20:41)
[2022-01-22] MEDS: ENOXAPARIN 40MG/0.4ML SYRINGE (J1650 PER 10MG) SC SCH (08:56)
[2022-01-22] MEDS: CYANOCOBALAMIN 500 MCG TAB PO SCH (08:56)
[2022-01-22] MEDS: FERROUS SULFATE 325MG TAB PO SCH (08:56)
[2022-01-22] MEDS: LORazepam 1 MG TAB PO PRN (10:29)
[2022-01-22 14:00] VITALS: BP 110/40
[2022-01-22] MEDS ORDERED: diphenhydrAMINE CREAM 30GM TOP PRN (16:25)
[2022-01-22] MEDS ORDERED: diphenhydrAMINE 25MG CAP PO ONE (16:45)
[2022-01-22] MEDS: ACETAMINOPHEN TAB 650MG DOSE (2X325MG) PO PRN (20:41)
[2022-01-22] MEDS: diphenhydrAMINE 25MG CAP PO PRN (21:19)
[2022-01-23] MEDS: NORCO, ANEXSIA 5/325MG TABLET (HYDROcodone/ACETAMINOPHEN) PO PRN ×3 (02:07→16:52)
[2022-01-23 06:00] VITALS: BP 117/48
[2022-01-23 06:15] LABS: HEMATOCRIT 31.1 % (36.0-47.0); HEMOGLOBIN 10.1 g/dl (12.0-15.5); MEAN CORPUSCULAR HEMOGLOBIN 30.5 pg (27.0-33.0); MEAN CORPUSCULAR HGB CONC 32.5 g/dl (32.0-36.5); PLATELET COUNT, AUTOMATED 404 10^3/uL (150-450); RED BLOOD COUNT 3.31 10^6/uL (4.00-5.40); WHITE BLOOD COUNT 11.2 10^3/uL (4.0-10.0)
[2022-01-23 06:57] LABS: BLOOD UREA NITROGEN 16 MG/DL (7-18); CALCIUM LEVEL 8.6 MG/DL (8.8-10.2); CARBON DIOXIDE LEVEL 27 MEQ/L (21-32); CHLORIDE LEVEL 106 MEQ/L (98-107); CREATININE FOR GFR 0.78 MG/DL (0.55-1.30); GLOMERULAR FILTRATION RATE > 60.0 (>32); GLUCOSE, FASTING 110 MG/DL (70-100); MAGNESIUM LEVEL 2.1 MG/DL (1.8-2.4); POTASSIUM SERUM 4.7 MEQ/L (3.5-5.1); SODIUM LEVEL 137 MEQ/L (136-145)
[2022-01-23] MEDS: FERROUS SULFATE 325MG TAB PO SCH (08:30)
[2022-01-23] MEDS: TAMSULOSIN 0.4 MG CAP PO SCH (08:30)
[2022-01-23] MEDS: VITAMIN D 1,000 INTERNATIONAL UNITS TABLET PO SCH (08:30)
[2022-01-23] MEDS: ATORVASTATIN 10 MG TAB PO SCH (08:30)
[2022-01-23] MEDS: CYANOCOBALAMIN 500 MCG TAB PO SCH (08:30)
[2022-01-23] MEDS: ASPIRIN 81MG ENTERIC TABLET PO SCH (08:30)
[2022-01-23] MEDS: atenoloL 25 MG TAB PO SCH ×2 (08:33→20:22)
[2022-01-23] MEDS: ENOXAPARIN 40MG/0.4ML SYRINGE (J1650 PER 10MG) SC SCH (08:33)
[2022-01-23] MEDS: INSULIN LISPRO (NovoLOG) PER UNIT SC SCH ×4 (08:34→20:25)
[2022-01-23] MEDS: LORazepam 1 MG TAB PO PRN (09:03)
[2022-01-23] MEDS: ACETAMINOPHEN TAB 650MG DOSE (2X325MG) PO PRN (20:22)
[2022-01-24 06:00] VITALS: BP 147/60
[2022-01-24 06:30] LABS: HEMATOCRIT 31.9 % (36.0-47.0); MEAN CORPUSCULAR HEMOGLOBIN 29.3 pg (27.0-33.0); MEAN CORPUSCULAR HGB CONC 31.3 g/dl (32.0-36.5); MEAN CORPUSCULAR VOLUME 93.5 fl (80.0-96.0); PLATELET COUNT, AUTOMATED 395 10^3/uL (150-450); RED BLOOD COUNT 3.41 10^6/uL (4.00-5.40); WHITE BLOOD COUNT 10.1 10^3/uL (4.0-10.0)
[2022-01-24 06:43] LABS: BLOOD UREA NITROGEN 13 MG/DL (7-18); CALCIUM LEVEL 8.6 MG/DL (8.8-10.2); CARBON DIOXIDE LEVEL 27 MEQ/L (21-32); CHLORIDE LEVEL 106 MEQ/L (98-107); CREATININE FOR GFR 0.71 MG/DL (0.55-1.30); GLOMERULAR FILTRATION RATE > 60.0 (>32); GLUCOSE, FASTING 111 MG/DL (70-100); MAGNESIUM LEVEL 2.2 MG/DL (1.8-2.4); POTASSIUM SERUM 4.7 MEQ/L (3.5-5.1); SODIUM LEVEL 138 MEQ/L (136-145)
[2022-01-24] MEDS: INSULIN LISPRO (NovoLOG) PER UNIT SC SCH ×4 (07:30→20:18)
[2022-01-24] MEDS: atenoloL 25 MG TAB PO SCH ×2 (07:50→20:46)
[2022-01-24] MEDS: FERROUS SULFATE 325MG TAB PO SCH (09:23)
[2022-01-24] MEDS: TAMSULOSIN 0.4 MG CAP PO SCH (09:23)
[2022-01-24] MEDS: CYANOCOBALAMIN 500 MCG TAB PO SCH (09:23)
[2022-01-24] MEDS: LORazepam 1 MG TAB PO PRN (09:23)
[2022-01-24] MEDS: VITAMIN D 1,000 INTERNATIONAL UNITS TABLET PO SCH (09:23)
[2022-01-24] MEDS: ASPIRIN 81MG ENTERIC TABLET PO SCH (09:24)
[2022-01-24] MEDS: ENOXAPARIN 40MG/0.4ML SYRINGE (J1650 PER 10MG) SC SCH (09:24)
[2022-01-24] MEDS: ATORVASTATIN 10 MG TAB PO SCH (09:27)
[2022-01-24] MEDS: NORCO, ANEXSIA 5/325MG TABLET (HYDROcodone/ACETAMINOPHEN) PO PRN (14:27)
[2022-01-24] MEDS: diphenhydrAMINE 25MG CAP PO PRN (20:45)
[2022-01-24] MEDS: ACETAMINOPHEN TAB 650MG DOSE (2X325MG) PO PRN (20:46)
[2022-01-25 03:10] VITALS: BP 135/56
[2022-01-25] MEDS: INSULIN LISPRO (NovoLOG) PER UNIT SC SCH ×4 (07:30→20:41)
[2022-01-25] MEDS: atenoloL 25 MG TAB PO SCH ×2 (09:00→21:00)
[2022-01-25] MEDS: CYANOCOBALAMIN 500 MCG TAB PO SCH (09:45)
[2022-01-25] MEDS: VITAMIN D 1,000 INTERNATIONAL UNITS TABLET PO SCH (09:46)
[2022-01-25] MEDS: TAMSULOSIN 0.4 MG CAP PO SCH (09:46)
[2022-01-25] MEDS: LORazepam 1 MG TAB PO PRN (09:46)
[2022-01-25] MEDS: ASPIRIN 81MG ENTERIC TABLET PO SCH (09:46)
[2022-01-25] MEDS: ATORVASTATIN 10 MG TAB PO SCH (09:46)
[2022-01-25] MEDS: ENOXAPARIN 40MG/0.4ML SYRINGE (J1650 PER 10MG) SC SCH (09:46)
[2022-01-25] MEDS: FERROUS SULFATE 325MG TAB PO SCH (09:46)
[2022-01-25] MEDS ORDERED: ACET1TAB55 PO (19:21)
[2022-01-25] MEDS ORDERED: ATEN25TA PO (19:21)
[2022-01-25] MEDS ORDERED: FLOM0.4C39 PO (19:21)
[2022-01-25] MEDS ORDERED: LOVE1INJ SC (19:21)
[2022-01-25] MEDS ORDERED: HYDR-3715 PO (19:21)
[2022-01-25] MEDS ORDERED: FERR1TAB8 PO (19:21)
[2022-01-25] MEDS ORDERED: CEFU50TA PO (19:21)
[2022-01-25] MEDS ORDERED: COLA100C5 PO (19:21)
[2022-01-25] MEDS ORDERED: SENN8.6T58 PO (19:22)
[2022-01-25] MEDS ORDERED: MIRA3350 PO (19:22)
[2022-01-25] MEDS: diphenhydrAMINE 25MG CAP PO PRN (22:37)
[2022-01-25] MEDS: ACETAMINOPHEN TAB 650MG DOSE (2X325MG) PO PRN (22:39)
[2022-01-25] MEDS: CEFUROXIME 500 MG TAB PO SCH (22:40)
[2022-01-26 06:00] VITALS: BP 135/58
[2022-01-26] MEDS: CEFUROXIME 500 MG TAB PO SCH (08:20)
[2022-01-26] MEDS: NORCO, ANEXSIA 5/325MG TABLET (HYDROcodone/ACETAMINOPHEN) PO PRN (08:20)
[2022-01-26] MEDS: LORazepam 1 MG TAB PO PRN (08:20)
[2022-01-26 08:21] VITALS: BP 136/62
[2022-01-26] MEDS: TAMSULOSIN 0.4 MG CAP PO SCH (08:21)
[2022-01-26] MEDS: ATORVASTATIN 10 MG TAB PO SCH (08:21)
[2022-01-26] MEDS: VITAMIN D 1,000 INTERNATIONAL UNITS TABLET PO SCH (08:21)
[2022-01-26] MEDS: FERROUS SULFATE 325MG TAB PO SCH (08:21)
[2022-01-26] MEDS: atenoloL 25 MG TAB PO SCH (08:21)
[2022-01-26] MEDS: ASPIRIN 81MG ENTERIC TABLET PO SCH (08:21)
[2022-01-26] MEDS: CYANOCOBALAMIN 500 MCG TAB PO SCH (08:21)
== END 2022-01-26 08:30 | disposition home or self-care (01) | DRG 308 ==
LOC: M ED 05:11 → M ED INP 07:25 → ENRESERV 10:01 → M MSPAV 12:27 → M PCU 01-15 12:59 → M MS5PR 01-18 14:42 → M PCU 01-18 20:10 → M MS5PR 01-20 22:03
PROVIDERS: ADMIT General Practice; ATTEND General Practice
PROC: 0QS604Z Reposition Right Upper Femur with Internal Fixation Device, Open Approach (ICD-10-PCS; principal; 2022-01-09 11:48)
PROC: 30233N1 Transfusion of Nonautologous Red Blood Cells into Peripheral Vein, Percutaneous Approach (ICD-10-PCS; 2022-01-17)
DX: S72.141A Displaced intertrochanteric fracture of right femur, initial encounter for closed fracture (principal); N39.0 Urinary tract infection, site not specified; B96.1 Klebsiella pneumoniae [K. pneumoniae] as the cause of diseases classified elsewhere; D50.9 Iron deficiency anemia, unspecified; E11.9 Type 2 diabetes mellitus without complications; F41.9 Anxiety disorder, unspecified; E53.8 Deficiency of other specified B group vitamins; R33.9 Retention of urine, unspecified; E78.5 Hyperlipidemia, unspecified; Z79.899 Other long term (current) drug therapy; Z79.82 Long term (current) use of aspirin; I47.1 Supraventricular tachycardia; D72.829 Elevated white blood cell count, unspecified; W18.30XA Fall on same level, unspecified, initial encounter; Y92.009 Unspecified place in unspecified non-institutional (private) residence as the place of occurrence of the external cause